=== PATIENT | female | born 1955 | race Caucasian/White ===

== ENCOUNTER → 2019-11-20 | Outpatient (CLI) | payer MEDICARE ==
--- NOTE | 2019-11-22 09:27 | MM ---
Reason for exam: clinical finding. Last mammogram was performed 1 year and 8 months ago. History: Family history of breast cancer in paternal aunt at age 50. Benign stereotactic core biopsy of both breasts, 2016. Stereotactic core biopsy of both breasts, January 14, 2015. Took estrogen for 5 years beginning at age 29. Physical Findings: Nurse did not find any significant physical abnormalities on exam. MG 3D Diag Mammo W/Cad KARLEE Bilateral CC and MLO view(s) were taken. Prior study comparison: March 16, 2018, mammogram, performed at [facility]. February 01, 2017, mammogram, performed at [facility]. There are scattered fibroglandular densities. No significant new findings when compared with previous films. These results were verbally communicated with the patient and result sheet given to the patient on 11/21/19. ASSESSMENT: Benign, BI-RAD 2 RECOMMENDATION: Routine screening mammogram of both breasts in 1 year. Manage on a clinical basis with regard to pain.
== END | disposition home or self-care (01) ==
LOC: RADMAMWWP 09:20
PROVIDERS: ATTEND Family Medicine
DX: R92.8 Other abnormal and inconclusive findings on diagnostic imaging of breast (principal)
CPT/HCPCS: 77066; G0279; 77062

== ENCOUNTER → 2019-12-30 | Outpatient (CLI) | payer MEDICARE ==
--- NOTE | 2019-12-30 15:41 | CT ---
EXAMINATION TYPE: CT abdomen pelvis wo con DATE OF EXAM: 12/30/2019 COMPARISON: None HISTORY: Abdomen pain, chronic diarrhea x1 month oral contrast only CT DLP: 1269 mGycm Automated exposure control for dose reduction was used. TECHNIQUE: Helical acquisition of images was performed from the lung bases through the pelvis withou t intravenous contrast. Oral contrast was utilized. FINDINGS: Unenhanced viscera are limited secondary to lack of intravenous contrast. LUNG BASES: There is a 3 mm left basilar solid pulmonary nodule on image 23 series 4. LIVER/GB: Hepatic parenchyma is diffusely hypoattenuated in comparison to that of the spleen, most co mmonly seen in hepatic steatosis. This finding limits evaluation for hepatic masses. No gross evidenc e of hepatic mass is seen. No intrahepatic biliary ductal dilatation. Gallbladder appears to be surgi chidi absent however no surgical clips are seen in the gallbladder fossa. PANCREAS: No significant abnormality is seen. SPLEEN: The spleen is enlarged measuring 15.6 cm in longitudinal dimension. ADRENALS: There is a low-density 1.1 cm left adrenal gland nodule measuring average Hounsfield unit o f 3.3 compatible with a benign lipid rich adenoma. Right adrenal gland is unremarkable. KIDNEYS: No nephrolithiasis or hydronephrosis. FREE AIR: No free air is visualized ADENOPATHY: No greater than 1 cm short axis lymph nodes are seen in the abdomen or pelvis. There are few prominent surrounding lymph nodes measuring up to 7 mm in short axis. REPRODUCTIVE ORGANS: Uterus appears surgically absent OSSEOUS STRUCTURES: Mild degenerative change. BOWEL: There is some subtle fat stranding surrounding the thickened sigmoid colon. Wall thickening i s in a long segment. Numerous sigmoid diverticula are seen. No pericolonic fluid collection. No dilat ed large or small bowel. Large bowel is slightly limited in evaluation as contrast has not progressed into the large bowel at the time of imaging. OTHER: Moderate atherosclerosis of the abdominal aorta and its branches. There is a very small fat fi lled periumbilical hernia. IMPRESSION: 1. Acute uncomplicated sigmoid diverticulitis. Ensure negative recent colonoscopy as there are promin ent surrounding lymph nodes that may be reactive or less likely neoplastic. 2. Severe hepatic steatosis. 3. Splenomegaly. 4. Benign lipid rich left adrenal gland adenoma. 5. Incidentally noted subcentimeter left basilar solid pulmonary nodule. Nonemergent full result of t he chest could be considered with CT thorax.
== END | disposition home or self-care (01) ==
LOC: RADCTMAIN 13:38
PROVIDERS: ATTEND Family Medicine
DX: D35.02 Benign neoplasm of left adrenal gland (principal); K57.32 Diverticulitis of large intestine without perforation or abscess without bleeding; K76.0 Fatty (change of) liver, not elsewhere classified; R16.1 Splenomegaly, not elsewhere classified
CPT/HCPCS: 74176

== ENCOUNTER → 2020-01-06 | Outpatient (CLI) | payer MEDICARE ==
--- NOTE | 2020-01-06 08:41 | US ---
EXAMINATION TYPE: US carotid duplex BILAT DATE OF EXAM: 01/06/2020 COMPARISON: NONE CLINICAL HISTORY: R10.13 Epigastric pain R11.2 Nausea with vomiting.. Dizziness, pre syncope EXAM MEASUREMENTS: RIGHT: Peak Systolic Velocity (PSV) cm/sec ----- Right CCA: 76.2 ----- Right ICA: 104.0 ----- Right ECA: 190.0 ICA/CCA ratio: 1.4 RIGHT: End Diastole cm/sec ----- Right CCA: 15.0 ----- Right ICA: 12.3 ----- Right ECA: 18.8 LEFT: Peak Systolic Velocity (PSV) cm/sec ----- Left CCA: 81.4 ----- Left ICA: 98.8 ----- Left ECA: 111.0 ICA/CCA ratio: 1.2 LEFT: End Diastole cm/sec ----- Left CCA: 19.1 ----- Left ICA: 26.8 ----- Left ECA: 11.3 VERTEBRALS (direction of flow): Right Vertebral: Antegrade Left Vertebral: Antegrade Rhythm: Normal No significant stenosis. IMPRESSION: Mild degree of grayscale atheromatous plaquing with no sonographically evident hemodynam ically significant stenosis within either visualized carotid arterial system. Criteria for Assigning % of Stenosis / Diameter reduction (Estimation based on the indirect measurements of the internal carotid artery velocities (ICA PSV). 1. Normal (no stenosis)=ICA PSV < 125 cm/s: ratio < 2.0: ICA EDV<40 cm/s. 2. Less than 50% stenosis=ICA PSV < 125 cm/s: ratio < 2.0: ICA EDV<40 cm/s. 3. 50 to 69% stenosis=ICA PSV of 125 to 230 cm/s: ration 2.0 ? 4.0: ICA EDV 40-100 cm/s. 4. Greater than 70% stenosis to near occlusion= ICA PSV > 230 cm/s: ratio > 4.0: ICA EDV > 100 cm/s. 5. Near occlusion= ICA PSV velocities may be low or undetectable: variable ratio and ICA EDV. 6. Total occlusion=unable to detect flow.
--- NOTE | 2020-01-06 16:45 | FL ---
EXAMINATION: Upper GI with small bowel follow through DATE: 01/06/2020 CLINICAL INDICATION: 64 year-old female epigastric pain with nausea and vomiting. Current treatment f or acute diverticulitis. Patient reports improving left lower quadrant pain. COMPARISON: Correlation CT 12/30/2019 Total Fluoroscopy Time: 2 minutes 48 seconds Total images: 50 FINDINGS: The esophagus has a normal course, caliber, and mucosa. Mild scattered tertiary peristaltic contracti ons are demonstrated. No discrete hiatal hernia is identified. Trace gastroesophageal reflux is encountered when the patien t is supine. The stomach demonstrates a few small, less than 1 cm round filling defects along the proximal gastric body and suggestion of localized fold thickening at the proximal gastric body particularly on the RA O imaging. The duodenum is free of any persistent filling defect and demonstrate a normal mucosal pattern. Following administration of barium, serial films were carried out to 1 hour 30 minutes. Barium is see n to reach the colon. Loops of jejunum and ileum are compressed and examined under fluoroscopy. The small bowel loops have a normal-caliber. Mucosal pattern is within normal limits. No intrinsic or extrinsic process is suspe cted. IMPRESSION: 1. Minimal, age-related esophageal dysmotility. Trace gastroesophageal reflux is encountered. 2. Localized gastric fold thickening along the proximal body. Findings may represent gastritis. Given the localized findings particularly on the MCCARTY view, consider direct visualization. 3. Suggestion of a few tiny hyperplastic polyps along the proximal gastric body supports some underly ing inflammation. 4. Normal small bowel follow-through with transit time of 1 hour 30 minutes.
== END | disposition home or self-care (01) ==
LOC: RADUSWWP 07:50
PROVIDERS: ATTEND Family Medicine
DX: I67.2 Cerebral atherosclerosis (principal); K22.4 Dyskinesia of esophagus; R93.3 Abnormal findings on diagnostic imaging of other parts of digestive tract
CPT/HCPCS: 74240; 74248; 93880

== ENCOUNTER 2020-03-29 17:02 | Emergency (ER) | payer MEDICARE ==
[2020-03-29] MEDS ORDERED: ALPRAZolam 0.25 MG TAB PO STA (17:42)
[2020-03-29] MEDS ORDERED: KETOROLAC 60 MG/2 ML VIAL IM STA (17:42)
--- NOTE | 2020-03-29 18:31 | ED ---
Upper Extremity HPI - General Source: family Mode of arrival: ambulatory Limitations: no limitations <Melissa Stapleton - Last Filed: 03/29/20 20:24> <Katja Westfall - Last Filed: 04/01/20 11:41> - General Chief Complaint: Extremity Injury, Upper Stated Complaint: L Wrist Injury Time Seen by Provider: 03/29/20 17:17 - History of Present Illness Initial Comments: 64-year-old female presenting today for chief complaint of left UE pain, patient states that prior to arrival she was attempting to hold the collar of her sons large lab when he moved and her fingers were caught under the collar digits 2-3. Patient states this caused her left arm to twist. She has pain midhumerus, wrist and hand. Patient states that entire arm is aching. She states the pain radiates slightly up from the shoulder into the muscle of the neck. Denies fall or direct neck trauma, denies pain with ROM of the neck, denies trauma to face, denies facial pain upon my history taking. Patient denies numbness or loss of sensation. Patient denies coolness of pallor. Admit to swelling, bruising without decreased ROM or strength of the digits 2-3 of the left hand. Patient appears well and is ambulatory on arrival no additional complaints. (Melissa Stapleton) - Related Data Allergies Allergy/AdvReac Type Severity Reaction Status Date / Time acetaminophen [From Tylenol] Allergy Swelling Verified 03/29/20 17:16 Penicillins Allergy Swelling Verified 03/29/20 17:16 Review of Systems ROS Other: All systems not noted in ROS Statement are negative. <Melissa Stapleton - Last Filed: 03/29/20 20:24> ROS Other: All systems not noted in ROS Statement are negative. <Katja Westfall - Last Filed: 04/01/20 11:41> ROS Statement: Those systems with pertinent positive or pertinent negative responses have been documented in the HPI. Past Medical History Past Medical History: Diabetes Mellitus, Hyperlipidemia, Thyroid Disorder History of Any Multi-Drug Resistant Organisms: None Reported Past Surgical History: Appendectomy, Cholecystectomy, Hysterectomy, Orthopedic Surgery Additional Past Surgical History / Comment(s): lap Past Psychological History: No Psychological Hx Reported Smoking Status: Former smoker Past Alcohol Use History: None Reported Past Drug Use History: None Reported <Melissa Stapleton - Last Filed: 03/29/20 20:24> General Exam Limitations: no limitations <Sangita Stapletonliz Fitzpatrick - Last Filed: 03/29/20 20:24> - General Exam Comments Initial Comments: General: The patient is awake and aler Eye: +3 mm pupils are equal, round and reactive to light, extra-ocular movements are intact. No nystagmus. There is normal conjunctiva bilaterally. No signs of icterus. Ears, nose, mouth and throat: There are moist mucous membranes and no oral le sions. Neck: The neck is supple, there is no tenderness or JVD. No mildine neck pain to palpation. Full ROM of the cervical spine. Mild left sided trapezius pain Cardiovascular: There is a regular rate and rhythm. No murmur, rub or gallop is appreciated. Respiratory: Lungs are clear to auscultation, respirations are non-labored, breath sounds are equal. No wheezes, stridor, rales, or rhonchi. Musculoskeletal: Normal inspection of carlin shoulder, elbow, wrist/forearm, hand has slight swelling digits 2-3. Patient has full strrength and sensation of the LE (all joints) +2 radial pulses equal in comparison b/l. N Neurological: A&O x 3. CN II-XII intact grossly, There are no obvious motor or sensory deficits. Coordination appears grossly intact. Speech is normal. Skin: Skin is warm and dry and no rashes or lesions are noted. Psychiatric: Cooperative, appropriate mood & affect, normal judgment. (Melissa Stapleton) Course Vital Signs 03/29/20 03/29/20 17:11 19:33 Temperature 97.9 F 98.0 F Pulse Rate 60 62 Respiratory 18 20 Rate Blood Pressure 185/76 118/78 O2 Sat by Pulse 97 98 Oximetry Medical Decision Making <Melissa Stapleton - Last Filed: 03/29/20 20:24> <Katja Westfall - Last Filed: 04/01/20 11:41> - Medical Decision Making X-ray negative for fracture. Patient is neurovascularly intact. There is no evidence of tendon injury and hand examination. Patient denies any head injuries or fall or any other complaints. I discussed some direct treatment and follow-up with orthopedics if symptoms are persisting for greater than one week patient is agreeable to this Plan discharge at this time. (Melissa Stapleton) I was available for consultation in the emergency department. The history and physical exam were done by the midlevel provider. I was consulted for this patients care. I reviewed the case with the midlevel provider and based on their presentation of the patient, I agree with the assessment, medical decision making and plan of care as documented. Chart was dictated using [employer] dictation software. Attempts were made to correct any dictation errors however some typographical errors may persist. Patient was seen during a national state of emergency due to the Covid-19 pandemic. (Katja Westfall) Disposition Is patient prescribed a controlled substance at d/c from ED?: No Time of Disposition: 19:15 <Melissa Stapleton - Last Filed: 03/29/20 20:24> <Katja Westfall - Last Filed: 04/01/20 11:41> Clinical Impression: Left arm pain, Left upper arm injury Disposition: HOME SELF-CARE Condition: Good Instructions (If sedation given, give patient instructions): Arm Pain (ED) Referrals: Sandra Cunningham MD [Primary Care Provider] - 1-2 days
--- NOTE | 2020-03-29 19:10 | XR ---
EXAMINATION TYPE: XR humerus LT DATE OF EXAM: 03/29/2020 COMPARISON: NONE HISTORY: Pain TECHNIQUE: 2 views FINDINGS: Shoulder joint and elbow joint appear intact. I see no fracture nor dislocation. IMPRESSION: Negative left humerus exam.
--- NOTE | 2020-03-29 19:11 | XR ---
EXAMINATION TYPE: XR hand complete LT DATE OF EXAM: 03/29/2020 COMPARISON: NONE HISTORY: Pain TECHNIQUE: 3 views FINDINGS: I see no fracture nor dislocation. Joint spaces are normal. There is narrowing and spurring at the first carpometacarpal joint. There is spurring at the IP joint of the thumb. 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 No fracture seen.
--- NOTE | 2020-03-29 19:12 | XR ---
EXAMINATION TYPE: XR forearm LT DATE OF EXAM: 03/29/2020 COMPARISON: NONE HISTORY: Fall. Pain. TECHNIQUE: 2 views FINDINGS: Radius and ulna appear intact. Elbow joint and wrist joint appear intact. I see no fracture . IMPRESSION: Negative left forearm exam.
[2020-03-29 19:36] VITALS: BP 118/78; PULSE 62; RESP 20; TEMP 98
== END 2020-03-29 19:35 | disposition home or self-care (01) ==
LOC: EC 17:02
DX: S49.92XA Unspecified injury of left shoulder and upper arm, initial encounter (principal); Z87.891 Personal history of nicotine dependence; Z88.6 Allergy status to analgesic agent; Z88.0 Allergy status to penicillin; X50.1XXA Overexertion from prolonged static or awkward postures, initial encounter; Y93.89 Activity, other specified
CPT/HCPCS: 73060; 73090; 73130; 99283; 96372; J1885

== ENCOUNTER → 2021-02-03 | Outpatient (CLI) | payer MEDICARE ==
--- NOTE | 2021-02-03 18:07 | US ---
EXAMINATION TYPE: US venous doppler duplex LE LT DATE OF EXAM: 02/03/2021 5:27 PM COMPARISON: NONE CLINICAL HISTORY: Left leg swelling R22.42. Hx left knee surgery. Swelling x 3 weeks. No hx of DVT. P atient takes baby aspirin daily. SIDE PERFORMED: Left TECHNIQUE: The lower extremity deep venous system is examined utilizing real time linear array sonog cortez with graded compression, doppler sonography and color-flow sonography. VESSELS IMAGED: Common Femoral Vein Deep Femoral Vein Greater Saphenous Vein * Femoral Vein Popliteal Vein Small Saphenous Vein * Proximal Calf Veins (* superficial vessels) Left Leg: Limited due to swelling and patient body habitus. Patient was unable to tolerate compressi on of the distal femoral vein due to pain. All remaining veins appear to compress and to show color flow. IMPRESSION: No evidence of left lower extremity DVT within the limitations of the study.
== END | disposition home or self-care (01) ==
LOC: RADUSWWP 16:53
PROVIDERS: ATTEND Family Medicine
DX: R22.42 Localized swelling, mass and lump, left lower limb (principal)

== ENCOUNTER 2021-05-10 17:00 | Emergency (ER) | payer MEDICARE ==
[2021-05-10 17:05] VITALS: TEMP 99.3
[2021-05-10] MEDS ORDERED: PANTOPRAZOLE 40 MG/10 ML VIAL IVP STA (17:14)
[2021-05-10] MEDS ORDERED: KETOROLAC 15 MG/ML 1 ML VIAL IVP STA (17:14)
[2021-05-10] MEDS ORDERED: DICYCLOMINE 10 MG/ML 2 ML AMP IM STA (17:14)
[2021-05-10] MEDS ORDERED: ONDANSETRON 4 MG/2 ML VIAL IVP STA (17:14)
[2021-05-10] MEDS ORDERED: SODIUM CHLORIDE 0.9% 1,000 ML IV STA (17:14)
--- NOTE | 2021-05-10 17:21 | ED ---
Abdominal Pain HPI - General Chief Complaint: Abdominal Pain Stated Complaint: Abd Pain, Diarrhea Time Seen by Provider: 05/10/21 17:05 Source: patient Mode of arrival: ambulatory Limitations: no limitations - History of Present Illness Initial Comments: 65-year-old female presents to the emergency department with a chief complaint of abdominal pain. States this pain has been ongoing over the last 2 months. States the pain is intermittent and typically associated with nausea or vomiting. States a small recent episode started approximately 0100 and is located in the epigastric region with radiation to bilateral sides. She reports nausea and multiple episodes of nonbilious and nonbloody vomiting. Also reports profuse watery diarrhea. She denies any vaginal urinary symptoms. She denies any chest pain or shortness of breath. She denies any fevers or chills. Surgical history of hysterectomy, appendectomy and cholecystectomy. - Related Data Previous Rx's Medication Instructions Recorded Ondansetron Odt [Zofran Odt] 4 mg PO Q8HR PRN #10 tab 05/10/21 Allergies Allergy/AdvReac Type Severity Reaction Status Date / Time acetaminophen [From Tylenol] Allergy Swelling Verified 05/10/21 17:05 Penicillins Allergy Swelling Verified 05/10/21 17:05 Review of Systems ROS Statement: Those systems with pertinent positive or pertinent negative responses have been documented in the HPI. ROS Other: All systems not noted in ROS Statement are negative. Past Medical History Past Medical History: Diabetes Mellitus, Hyperlipidemia, Thyroid Disorder History of Any Multi-Drug Resistant Organisms: None Reported Past Surgical History: Appendectomy, Cholecystectomy, Hysterectomy, Orthopedic Surgery Additional Past Surgical History / Comment(s): lap Past Psychological History: No Psychological Hx Reported Smoking Status: Never smoker Past Alcohol Use History: None Reported Past Drug Use History: None Reported General Exam Limitations: no limitations General appearance: alert, in no apparent distress, obese Head exam: Present: atraumatic, normocephalic, normal inspection Eye exam: Present: normal appearance, PERRL, EOMI Pupils: Present: normal accommodation ENT exam: Present: normal exam, normal oropharynx, mucous membranes moist Neck exam: Present: normal inspection, full ROM. Absent: tenderness, lymphadenopathy Respiratory exam: Present: normal lung sounds bilaterally. Absent: respiratory distress, wheezes, rales, rhonchi, stridor Cardiovascular Exam: Present: regular rate, normal rhythm, normal heart sounds. Absent: systolic murmur GI/Abdominal exam: Present: soft, tenderness (Epigastric abdominal tenderness), normal bowel sounds. Absent: distended, guarding, rebound Extremities exam: Present: normal inspection, full ROM, normal capillary refill. Absent: tenderness, pedal edema, joint swelling Back exam: Present: normal inspection, full ROM. Absent: tenderness, CVA tenderness (R), CVA tenderness (L) Neurological exam: Present: alert, oriented X3 Psychiatric exam: Present: normal affect, normal mood Skin exam: Present: warm, dry, intact, normal color Course Vital Signs 05/10/21 17:01 Temperature 99.3 F Pulse Rate 73 Respiratory 20 Rate Blood Pressure 125/63 O2 Sat by Pulse 96 Oximetry Medical Decision Making - Medical Decision Making 65-year-old female presents to the emergency department with a chief complaint of abdominal pain. Physical examination reveals epigastric abdominal tenderness. Laboratory work is unremarkable. CT of abdomen and pelvis shows no acute findings. There is clearing notified liver. Patient was given IV fluids, antiemetics, Protonix and analgesia. On reevaluation, she reports improvement in symptoms. We'll discharge her with tramadol and Zofran starter pack. Advised to follow up with a GI specialist. Strict return parameters were thoroughly discussed the patient who is understanding and agreeable. Case discussed with physician. - Lab Data Result diagrams: 05/10/21 17:30 05/10/21 17:30 Lab Results 05/10/21 05/10/21 Range/Units 17:30 17:30 WBC 9.6 (3.8-10.6) k/uL RBC 4.96 (3.80-5.40) m/uL Hgb 14.7 (11.4-16.0) gm/dL Hct 42.6 (34.0-46.0) % MCV 85.8 (80.0-100.0) fL MCH 29.7 (25.0-35.0) pg MCHC 34.6 (31.0-37.0) g/dL RDW 14.9 (11.5-15.5) % Plt Count 262 (150-450) k/uL MPV 7.5 Neutrophils % 78 % Lymphocytes % 12 % Monocytes % 7 % Eosinophils % 2 % Basophils % 0 % Neutrophils # 7.5 (1.3-7.7) k/uL Lymphocytes # 1.1 (1.0-4.8) k/uL Monocytes # 0.7 (0-1.0) k/uL Eosinophils # 0.2 (0-0.7) k/uL Basophils # 0.0 (0-0.2) k/uL Sodium 140 (137-145) mmol/L Potassium 3.9 (3.5-5.1) mmol/L Chloride 102 (98-107) mmol/L Carbon Dioxide 26 (22-30) mmol/L Anion Gap 12 mmol/L BUN 19 H (7-17) mg/dL Creatinine 0.61 (0.52-1.04) mg/dL Est GFR (CKD-EPI)AfAm >90 (>60 ml/min/1.73 sqM) Est GFR (CKD-EPI)NonAf >90 (>60 ml/min/1.73 sqM) Glucose 144 H (74-99) mg/dL Calcium 9.3 (8.4-10.2) mg/dL Total Bilirubin 2.0 H (0.2-1.3) mg/dL AST 24 (14-36) U/L ALT 19 (4-34) U/L Alkaline Phosphatase 60 (38-126) U/L Total Protein 7.4 (6.3-8.2) g/dL Albumin 4.4 (3.5-5.0) g/dL Lipase 71 (23-300) U/L Disposition Clinical Impression: Abdominal pain Disposition: HOME SELF-CARE Condition: Stable Instructions (If sedation given, give patient instructions): Abdominal Pain (ED) Additional Instructions: Please return to the Emergency Department if symptoms worsen or any other concerns. Prescriptions: Ondansetron Odt [Zofran Odt] 4 mg PO Q8HR PRN #10 tab PRN Reason: Nausea Is patient prescribed a controlled substance at d/c from ED?: No Referrals: Sandra Cunningham MD [Primary Care Provider] - 1-2 days Time of Disposition: 20:23
[2021-05-10 17:46] LABS: Basophils % (A) 0 %; Eosinophils # (A) 0.2 k/uL (0-0.7); Eosinophils % (A) 2 %; HCT 42.6 % (34.0-46.0); HGB 14.7 gm/dL (11.4-16.0); Lymphocytes # (A) 1.1 k/uL (1.0-4.8); Lymphocytes % (A) 12 %; MCH 29.7 pg (25.0-35.0); MCHC 34.6 g/dL (31.0-37.0); MCV 85.8 fL (80.0-100.0); Mean Platelet Volume 7.5; Monocytes # (A) 0.7 k/uL (0-1.0); Monocytes % (A) 7 %; Neutrophils # (A) 7.5 k/uL (1.3-7.7); Neutrophils % (A) 78 %; Platelet Count 262 k/uL (150-450); RBC 4.96 m/uL (3.80-5.40); RDW 14.9 % (11.5-15.5); WBC 9.6 k/uL (3.8-10.6)
[2021-05-10 17:59] LABS: ALT 19 U/L (4-34); AST 24 U/L (14-36); African American GFR (CKD) >90 (>60 ml/min/1.73 sqM); Albumin 4.4 g/dL (3.5-5.0); Alkaline Phosphatase 60 U/L (38-126); Anion Gap 12 mmol/L; Blood Urea Nitrogen 19 mg/dL (7-17); Calcium 9.3 mg/dL (8.4-10.2); Carbon Dioxide 26 mmol/L (22-30); Chloride 102 mmol/L (98-107); Glucose 144 mg/dL (74-99); Lipase 71 U/L (23-300); Non-African American GFR(CKD) >90 (>60 ml/min/1.73 sqM); Potassium 3.9 mmol/L (3.5-5.1); Sodium 140 mmol/L (137-145); Total Protein 7.4 g/dL (6.3-8.2)
--- NOTE | 2021-05-10 19:17 | XR ---
EXAMINATION TYPE: XR KUB DATE OF EXAM: 05/10/2021 COMPARISON: NONE HISTORY: Abdominal pain TECHNIQUE: 2 views upright FINDINGS: There is no sign of intestinal obstruction or pneumoperitoneum. Fecal pattern is normal. Th ere is no sign of a mass. There are no pathologic definite calcifications over the kidneys. There is some increased density over right anterior sixth rib that is probably sclerosis in the costal cartila ge. IMPRESSION: Nonacute abdomen.
--- NOTE | 2021-05-10 19:50 | CT ---
EXAMINATION TYPE: CT abdomen pelvis w con DATE OF EXAM: 05/10/2021 COMPARISON: December 30, 2019 HISTORY: Epigastric pain and tenderness. CT DLP: 2213.9 mGycm Automated exposure control for dose reduction was used. CONTRAST: Performed with IV Contrast, patient injected with 100 mL of Isovue 300. Lung bases are clear. There is no pleural effusion. Heart size is normal. There is no pericardial eff usion. Liver spleen stomach appear intact. The bile ducts are not dilated. There is no pancreatic mas s. Gallbladder appears absent. There is no adrenal mass. There is some nodularity of the left adrenal gland consistent with hypertro phy. Kidneys show satisfactory contrast opacification. There is no hydronephrosis. Delayed images neftaly w normal renal excretion. There is no retroperitoneal adenopathy. Bladder distends smoothly. There is no inguinal hernia. There is no pelvic mass. There is hysterectomy. There are numerous sigmoid diverticula. There is no diverticulitis. Appendix is not seen. There is no sign of thickened appendix. The terminal ileum appears normal. There is no mesenteric edema. There is no ascites or free air. There is no bowel obstruction. The lumbar vertebra have normal alignment. There is no compression fracture. I see no bony destructiv e process. Bony pelvis is intact. The hip joints are intact. IMPRESSION: There is no evidence of acute abdomen and pelvis. There is sigmoid diverticulosis without diverticuli tis unchanged. there is improvement in the fatty infiltration of the liver compared to old exam.
[2021-05-10] MEDS ORDERED: traMADol 50 MG TAB PO STA (20:21)
[2021-05-10] MEDS ORDERED: traMADol 50 MG STARTER PACK 3 TAB BTL PO STA (20:21)
[2021-05-10] MEDS ORDERED: ONDANSETRON 4 MG ODT STARTER PACK 2 TAB BTL PO STA (20:21)
[2021-05-10 20:57] VITALS: BP 125/82; PULSE 70; RESP 18
== END 2021-05-10 20:56 | disposition home or self-care (01) ==
LOC: EC 17:00
DX: R10.13 Epigastric pain (principal); E78.5 Hyperlipidemia, unspecified; E11.9 Type 2 diabetes mellitus without complications; E07.9 Disorder of thyroid, unspecified; Z90.89 Acquired absence of other organs; Z90.49 Acquired absence of other specified parts of digestive tract; Z90.710 Acquired absence of both cervix and uterus
CPT/HCPCS: 93005; 80053; 83690; 85025; 74018; 74177; 99284; 96374; 96375 ×2; 96372; 96361 ×3; J0500; J2405; J1885; S0119; C9113; Q9967